=== PATIENT | female | born 1970 | race African-American/Black ===

== ENCOUNTER 2017-04-24 09:41 | Emergency (ER) | payer MEDICARE, OTHER ==
[~2017-04-24] VITALS: Ht 162.6 cm; Wt 61.0 kg
[2017-04-24 10:55] LABS: BASOPHILS % 0.1 % (0.0-2.0); EOSINOPHILS % 3.3 % (0.0-5.0); HEMATOCRIT. 31.3 % (36.0-48.0); HEMOGLOBIN. 10.6 g/dL (12.0-16.0); LYMPHOCYTES % 27.9 % (20.0-50.0); MEAN CORPUSCULAR HEMOGLOBIN 29.9 pg (28.0-32.0); MEAN CORPUSCULAR VOLUME 88.2 fL (81.0-99.0); MEAN PLATELET VOLUME 8.8 fl (7.4-10.4); MONOCYTES % 7.2 % (2.0-8.0); NEUTROPHILS % 61.5 % (40.0-76.0); PLATELET 200 x1000/uL (130-400); RED BLOOD CELL COUNT 3.55 mill/uL (4.2-5.4); RED CELL DISTRIBUTION WIDTH 17.2 % (11.6-14.6)
[2017-04-24 10:59] LABS: CLARITY URINE CLEAR (CLEAR); COLOR URINE YELLOW (YELLOW); KETONES URINE NEGATIVE (NEGATIVE); LEUKOCYTE ESTERASE URINE NEGATIVE (NEGATIVE); NITRITE URINE NEGATIVE (NEGATIVE); OCCULT BLOOD URINE TRACE (NEGATIVE); PH URINE 5.5 (4.5-8.0); PROTEIN URINE NEGATIVE (NEGATIVE); UROBILINOGEN URINE 0.2 E.U./dL (0.2-1.0)
[2017-04-24 11:03] LABS: INR 1.1; PROTHROMBIN TIME 11.9 sec (9.4-11.6)
[2017-04-24 11:06] LABS: AMMONIA < 10 uMol/L (<32); CHLORIDE 113 mEq/L (98-107); ETHANOL BLOOD < 10 mg/dL
[2017-04-24 11:20] LABS: HCG SCREEN NEGATIVE
[2017-04-24 11:35] LABS: *AMPHETAMINES SCREEN URINE NEGATIVE (NEGATIVE); *BARBITURATES SCREEN URINE NEGATIVE (NEGATIVE); *BENZODIAZEPINES SCREEN URINE NEGATIVE (NEGATIVE); *COCAINE SCREEN URINE NEGATIVE (NEGATIVE); METHADONE URINE SCREEN NEGATIVE (NEGATIVE); OPIATES URINE SCREEN NEGATIVE (NEGATIVE); PHENCYCLIDINE URINE SCREEN NEGATIVE (NEGATIVE)
[2017-04-24 11:43] LABS: CANNABINOID URINE SCREEN PRESUMTIVE POSITIVE (NEGATIVE)
[2017-04-24] MEDS ORDERED: ASPIRIN 325MG TABLET PO ONE (12:00)
[2017-04-24 12:55] VITALS: BP 183/90
== END 2017-04-24 14:55 | disposition left against medical advice (07) ==
LOC: ER 10:09 → EDBEDREQ 12:03 → EDBEDREQTM 12:03 → EDBEDREQ 12:34 → EDBEDREQTM 12:34 → ENRESERV 14:13 → CANRESERV 14:13 → ER 14:55 → CANBEDREQ 16:32
DX: I25.119 Atherosclerotic heart disease of native coronary artery with unspecified angina pectoris (principal); G45.9 Transient cerebral ischemic attack, unspecified; D72.819 Decreased white blood cell count, unspecified; D68.9 Coagulation defect, unspecified; I10 Essential (primary) hypertension; D64.9 Anemia, unspecified; R79.1 Abnormal coagulation profile; E05.90 Thyrotoxicosis, unspecified without thyrotoxic crisis or storm; J44.9 Chronic obstructive pulmonary disease, unspecified; F12.90 Cannabis use, unspecified, uncomplicated; Z91.19 Patient's noncompliance with other medical treatment and regimen; Z79.01 Long term (current) use of anticoagulants; Z95.2 Presence of prosthetic heart valve; Z98.61 Coronary angioplasty status
CPT/HCPCS: 36415; 70450; 71045; 80053; 80305; 81003; 82140; 84484; 84703; 85025; 85610; 93005; 99285; G0482

== ENCOUNTER 2019-01-08 10:09 | Emergency (ER) | payer MEDICARE, MEDICAID ==
[~2019-01-08] VITALS: Ht 167.6 cm; Wt 72.0 kg
[2019-01-08] MEDS ORDERED: HYDROCODONE/ACETAMINOPHEN 5/325MG TABLET PO SCH (12:45)
[2019-01-08 13:12] VITALS: BP 125/77
== END 2019-01-08 13:13 | disposition home or self-care (01) ==
LOC: ER 11:13
DX: S39.012A Strain of muscle, fascia and tendon of lower back, initial encounter (principal); I25.10 Atherosclerotic heart disease of native coronary artery without angina pectoris; I10 Essential (primary) hypertension; E05.90 Thyrotoxicosis, unspecified without thyrotoxic crisis or storm; F12.10 Cannabis abuse, uncomplicated; W19.XXXA Unspecified fall, initial encounter; Y93.89 Activity, other specified; Y92.89 Other specified places as the place of occurrence of the external cause; Y99.8 Other external cause status; Z95.4 Presence of other heart-valve replacement
CPT/HCPCS: 72100; 93005; 99283

== ENCOUNTER 2019-01-11 10:08 | Inpatient (IN) | payer MEDICARE, MEDICAID ==
[~2019-01-11] VITALS: Ht 163.8 cm; Wt 83.5 kg
[2019-01-11] MEDS ORDERED: KETOROLAC 30MG/ML VIAL IV STA (15:05)
[2019-01-11] MEDS ORDERED: SODIUM CHLORIDE 0.9% 1,000 ML IV ONE (15:05)
[2019-01-11] MEDS ORDERED: ONDANSETRON HCL 4MG/2ML INJ IV STA (15:05)
[2019-01-11] MEDS ORDERED: MORPHINE SULFATE 4 MG/ML CPJ (NOT FOR IM USE) IV STA (15:05)
[2019-01-11 15:42] LABS: BASOPHILS % 1.1 % (0.0-2.0); EOSINOPHILS % 1.4 % (0.0-5.0); HEMATOCRIT. 27.3 % (36.0-48.0); HEMOGLOBIN. 9.1 g/dL (12.0-16.0); INR 2.7; MEAN CORPUSCULAR HEMOGLOBIN 28.1 pg (28.0-32.0); MEAN CORPUSCULAR VOLUME 84.2 fL (81.0-99.0); MEAN PLATELET VOLUME 8.2 fl (7.4-10.4); MONOCYTES % 7.2 % (2.0-8.0); NEUTROPHILS % 71.3 % (40.0-76.0); PLATELET 203 x1000/uL (130-400); PROTHROMBIN TIME 26.8 sec (9.6-11.0); RED BLOOD CELL COUNT 3.24 mill/uL (4.2-5.4); RED CELL DISTRIBUTION WIDTH 14.8 % (11.6-14.6)
[2019-01-11 15:51] LABS: CHLORIDE 110 mEq/L (98-107)
[2019-01-11 17:03] LABS: CLARITY URINE CLEAR (CLEAR); COLOR URINE YELLOW (YELLOW); KETONES URINE NEGATIVE (NEGATIVE); LEUKOCYTE ESTERASE URINE NEGATIVE (NEGATIVE); NITRITE URINE NEGATIVE (NEGATIVE); OCCULT BLOOD URINE NEGATIVE (NEGATIVE); PH URINE 6.5 (4.5-8.0); PROTEIN URINE NEGATIVE (NEGATIVE); SPECIFIC GRAVITY URINE 1.012 (1.005-1.030)
[2019-01-11] MEDS ORDERED: DIPHENHYDRAMINE 50MG/ML VIAL IV PRN (18:45)
[2019-01-11] MEDS ORDERED: LORAZEPAM 0.5MG TABLET PO PRN (18:45)
[2019-01-11] MEDS ORDERED: GUAIFENESIN 200MG/10ML SUGAR FREE UDC PO PRN (18:45)
[2019-01-11] MEDS ORDERED: TEMAZEPAM 15MG CAPSULE PO PRN (18:45)
[2019-01-11] MEDS ORDERED: MAGNESIUM HYDROXIDE 400MG/5ML 30ML UDC PO PRN (18:45)
[2019-01-11] MEDS ORDERED: ACETAMINOPHEN 325MG TABLET PO PRN (18:45)
[2019-01-11] MEDS ORDERED: MAGNESIUM/ALUMINUM HYDROXIDE/SIMETHICONE 30ML UDC PO PRN (18:45)
[2019-01-11] MEDS ORDERED: HYDROMORPHONE HCL/PF 2MG/ML CPJ IV PRN (18:45)
[2019-01-11] MEDS ORDERED: KETOROLAC 30MG/ML VIAL IV PRN (19:00)
[2019-01-11] MEDS ORDERED: CLONIDINE 0.1MG TABLET PO PRN (19:00)
[2019-01-11] MEDS: HYDROCODONE/ACETAMINOPHEN 10/325MG TABLET PO PRN (23:39)
[2019-01-12 00:30] VITALS: BP 109/55
[2019-01-12] MEDS ORDERED: WARF6TAB48 MT (03:08)
[2019-01-12] MEDS ORDERED: LEVO112T2 MT (03:10)
[2019-01-12] MEDS: CEFAZOLIN 500 MG in DEXTROSE 5% WATER 50 ML IV SCH ×2 (03:27→10:10)
[2019-01-12] MEDS: SODIUM CHLORIDE 0.9% INJ 3ML FLUSH IVF SCH ×2 (06:55→13:05)
[2019-01-12] MEDS: LEVOTHYROXINE SODIUM 112MCG TABLET PO SCH (07:12)
[2019-01-12 07:49] LABS: INR 2.4; PROTHROMBIN TIME 23.5 sec (9.6-11.0)
[2019-01-12 08:00] VITALS: BP 119/58
[2019-01-12 08:17] LABS: BASOPHILS % 1.8 % (0.0-2.0); EOSINOPHILS % 3.1 % (0.0-5.0); HEMATOCRIT. 25.4 % (36.0-48.0); HEMOGLOBIN. 8.5 g/dL (12.0-16.0); LYMPHOCYTES % 28.7 % (20.0-50.0); MEAN CORPUSCULAR HEMOGLOBIN 28.6 pg (28.0-32.0); MEAN CORPUSCULAR VOLUME 85.1 fL (81.0-99.0); MEAN PLATELET VOLUME 8.5 fl (7.4-10.4); MONOCYTES % 12.2 % (2.0-8.0); NEUTROPHILS % 54.2 % (40.0-76.0); PLATELET 193 x1000/uL (130-400); RED BLOOD CELL COUNT 2.99 mill/uL (4.2-5.4); RED CELL DISTRIBUTION WIDTH 15.2 % (11.6-14.6)
[2019-01-12 08:31] LABS: CHLORIDE 112 mEq/L (98-107)
[2019-01-12 08:42] LABS: T4 FREE 1.29 ng/dL (0.76-1.46)
[2019-01-12] MEDS: FAMOTIDINE 20MG TABLET PO SCH ×2 (09:09→21:38)
[2019-01-12] MEDS: AMLODIPINE 2.5MG TABLET PO SCH (09:09)
[2019-01-12] MEDS: DOCUSATE SODIUM 100MG CAPSULE PO SCH ×2 (09:09→16:28)
[2019-01-12] MEDS: HYDROCODONE/ACETAMINOPHEN 10/325MG TABLET PO PRN ×2 (11:38→17:59)
[2019-01-12 11:44] VITALS: BP 114/48
[2019-01-12 12:00] VITALS: BP 108/57
[2019-01-12] MEDS ORDERED: IPRATROPIUM/ALBUTEROL 0.5-3(2.5)MG/3ML NEB HHN PRN (14:00)
[2019-01-12 16:00] VITALS: BP 137/83
[2019-01-12 20:00] VITALS: BP 122/56
[2019-01-12] MEDS: ONDANSETRON HCL 4MG/2ML INJ IV PRN (21:38)
[2019-01-13] VITALS: BP 126/58
[2019-01-13] MEDS: HYDROCODONE/ACETAMINOPHEN 10/325MG TABLET PO PRN ×2 (00:06→11:54)
[2019-01-13] MEDS: CEFAZOLIN 500 MG in DEXTROSE 5% WATER 50 ML IV SCH ×3 (01:37→18:06)
[2019-01-13 04:00] VITALS: BP 111/56
[2019-01-13 07:03] LABS: BASOPHILS % 1.4 % (0.0-2.0); HEMATOCRIT. 27.9 % (36.0-48.0); HEMOGLOBIN. 9.1 g/dL (12.0-16.0); LYMPHOCYTES % 32.1 % (20.0-50.0); MEAN CORPUSCULAR HEMOGLOBIN 27.8 pg (28.0-32.0); MEAN CORPUSCULAR VOLUME 84.8 fL (81.0-99.0); MEAN PLATELET VOLUME 8.2 fl (7.4-10.4); MONOCYTES % 10.8 % (2.0-8.0); NEUTROPHILS % 52.7 % (40.0-76.0); PLATELET 234 x1000/uL (130-400); RED BLOOD CELL COUNT 3.29 mill/uL (4.2-5.4); RED CELL DISTRIBUTION WIDTH 14.6 % (11.6-14.6)
[2019-01-13 07:05] LABS: INR 1.9; PROTHROMBIN TIME 19.1 sec (9.6-11.0)
[2019-01-13 08:00] VITALS: BP 126/84
[2019-01-13] MEDS: DOCUSATE SODIUM 100MG CAPSULE PO SCH ×2 (08:34→16:35)
[2019-01-13] MEDS: FAMOTIDINE 20MG TABLET PO SCH ×2 (08:34→20:34)
[2019-01-13] MEDS: LEVOTHYROXINE SODIUM 112MCG TABLET PO SCH (08:34)
[2019-01-13] MEDS: AMLODIPINE 2.5MG TABLET PO SCH (08:35)
[2019-01-13] MEDS ORDERED: SACU1TAB7 MT (09:00)
[2019-01-13] MEDS ORDERED: SACUBITRIL/VALSARTAN 49MG/51MG TABLET PO SCH (09:00)
[2019-01-13] MEDS ORDERED: ASPI-1393 MT (09:00)
[2019-01-13] MEDS ORDERED: METO25TA6 MT (09:00)
[2019-01-13] MEDS: VALSARTAN PO SCH ×2 (11:47→20:34)
[2019-01-13] MEDS: SACUBITRIL PO SCH ×2 (11:47→20:34)
[2019-01-13 12:00] VITALS: BP 126/67
[2019-01-13] MEDS: SODIUM CHLORIDE 0.9% INJ 3ML FLUSH IVF SCH (13:27)
[2019-01-13 16:00] VITALS: BP 121/77
[2019-01-13 20:00] VITALS: BP 117/75
[2019-01-13] MEDS: HYDROMORPHONE HCL/PF 2MG/ML CPJ IV PRN (20:35)
[2019-01-13] MEDS: ONDANSETRON HCL 4MG/2ML INJ IV PRN (21:54)
[2019-01-14] VITALS: BP 113/68
[2019-01-14] MEDS: CEFAZOLIN 500 MG in DEXTROSE 5% WATER 50 ML IV SCH ×3 (03:34→18:35)
[2019-01-14 04:00] VITALS: BP 114/65
[2019-01-14] MEDS: SODIUM CHLORIDE 0.9% INJ 3ML FLUSH IVF SCH ×3 (05:53→13:35)
[2019-01-14] MEDS: LEVOTHYROXINE SODIUM 112MCG TABLET PO SCH (06:22)
[2019-01-14 08:00] VITALS: BP 121/81
[2019-01-14 08:34] LABS: HEMATOCRIT 29.1 % (36.0-48.0); HEMOGLOBIN 9.7 g/dL (12.0-16.0); MEAN CORPUSCULAR HEMOGLOBIN 28.3 pg (28.0-32.0); MEAN CORPUSCULAR VOLUME 84.5 fL (81.0-99.0); PLATELET 258 x1000/uL (130-400); RED BLOOD CELL COUNT 3.44 mill/uL (4.2-5.4); RED CELL DISTRIBUTION WIDTH 14.3 % (11.6-14.6)
[2019-01-14 09:50] LABS: INR 1.7; PROTHROMBIN TIME 16.7 sec (9.6-11.0)
[2019-01-14] MEDS: FAMOTIDINE 20MG TABLET PO SCH ×2 (10:08→22:08)
[2019-01-14] MEDS: AMLODIPINE 2.5MG TABLET PO SCH (10:08)
[2019-01-14] MEDS: ASPIRIN 81MG EC TABLET PO SCH (10:09)
[2019-01-14] MEDS: SACUBITRIL PO SCH ×2 (10:10→22:09)
[2019-01-14] MEDS: DOCUSATE SODIUM 100MG CAPSULE PO SCH ×2 (10:10→16:12)
[2019-01-14] MEDS: VALSARTAN PO SCH ×2 (10:10→22:09)
[2019-01-14] MEDS: HYDROMORPHONE HCL/PF 2MG/ML CPJ IV PRN (11:32)
[2019-01-14 12:00] VITALS: BP 145/88
[2019-01-14 16:00] VITALS: BP 150/98
[2019-01-14] MEDS: HYDROCODONE/ACETAMINOPHEN 10/325MG TABLET PO PRN (18:34)
[2019-01-14 20:00] VITALS: BP 126/79
[2019-01-15] VITALS: BP 122/74
[2019-01-15 04:00] VITALS: BP 136/75
[2019-01-15] MEDS: SODIUM CHLORIDE 0.9% INJ 3ML FLUSH IVF SCH (04:18)
[2019-01-15] MEDS: CEFAZOLIN 500 MG in DEXTROSE 5% WATER 50 ML IV SCH (04:18)
[2019-01-15] MEDS: HYDROCODONE/ACETAMINOPHEN 10/325MG TABLET PO PRN ×2 (04:31→09:25)
[2019-01-15] MEDS: LEVOTHYROXINE SODIUM 112MCG TABLET PO SCH (06:19)
[2019-01-15 07:36] LABS: CHLORIDE 108 mEq/L (98-107)
[2019-01-15 08:00] VITALS: BP 139/102
[2019-01-15 08:08] LABS: BASOPHILS % 1.4 % (0.0-2.0); EOSINOPHILS % 2.6 % (0.0-5.0); LYMPHOCYTES % 30.3 % (20.0-50.0); MEAN CORPUSCULAR HEMOGLOBIN 28.3 pg (28.0-32.0); MEAN CORPUSCULAR VOLUME 85.2 fL (81.0-99.0); MONOCYTES % 7.9 % (2.0-8.0); NEUTROPHILS % 57.8 % (40.0-76.0); RED BLOOD CELL COUNT 3.88 mill/uL (4.2-5.4); RED CELL DISTRIBUTION WIDTH 14.6 % (11.6-14.6)
[2019-01-15] MEDS: FAMOTIDINE 20MG TABLET PO SCH (09:06)
[2019-01-15] MEDS: DOCUSATE SODIUM 100MG CAPSULE PO SCH (09:06)
[2019-01-15] MEDS: ASPIRIN 81MG EC TABLET PO SCH (09:06)
[2019-01-15] MEDS: AMLODIPINE 2.5MG TABLET PO SCH (09:12)
[2019-01-15] MEDS: VALSARTAN PO SCH (09:13)
[2019-01-15] MEDS: SACUBITRIL PO SCH (09:13)
[2019-01-15 12:00] VITALS: BP 168/96
[2019-01-15 15:14] VITALS: BP 168/96
[2019-01-15 20:07] LABS: MEAN PLATELET VOLUME 8.5 fl (7.4-10.4); PLATELET 262 x1000/uL (130-400)
== END 2019-01-15 15:29 | disposition home or self-care (01) | DRG 605 ==
LOC: ER 10:08 → 6EST 17:26 → EDBEDREQSVC 17:39 → EDBEDREQ 17:39 → EDBEDREQTM 22:12 → EDBEDREQSVC 22:12 → ENRESERV 23:24
PROVIDERS: ADMIT Internal Medicine; ATTEND Internal Medicine
DX: S30.0XXA Contusion of lower back and pelvis, initial encounter (principal); R79.1 Abnormal coagulation profile; T45.515A Adverse effect of anticoagulants, initial encounter; I25.10 Atherosclerotic heart disease of native coronary artery without angina pectoris; F12.90 Cannabis use, unspecified, uncomplicated; I11.9 Hypertensive heart disease without heart failure; I49.5 Sick sinus syndrome; W18.39XA Other fall on same level, initial encounter; E03.9 Hypothyroidism, unspecified; Y92.89 Other specified places as the place of occurrence of the external cause; Z95.2 Presence of prosthetic heart valve; Z79.01 Long term (current) use of anticoagulants; Z82.49 Family history of ischemic heart disease and other diseases of the circulatory system; Y93.89 Activity, other specified; Y99.8 Other external cause status; Z79.82 Long term (current) use of aspirin; Z79.899 Other long term (current) drug therapy
CPT/HCPCS: 36415; 80048; 81003; 84439; 84443; 85027; 93306; 96374; 97161; 99285; J0690; J1170; J1885; J2270; J2405; J7030; J7040; J7060

== ENCOUNTER 2022-04-21 13:10 | Inpatient (IN) | payer MEDICARE, OTHER ==
[~2022-04-21] VITALS: Ht 162.6 cm; Wt 74.4 kg
[~2022-04-21 13:10] MED LIST: ASPI-1497 MT; LEVO112T2 MT; METO25TA6 MT; SACU1TAB7 MT; WARF6TAB48 MT
[2022-04-21] MEDS ORDERED: TETRACAINE 0.5% OPHTH DROPS 4ML BOTHEYE ONE (14:00)
[2022-04-21] MEDS ORDERED: FLUORESCEIN SODIUM 1MG/STRIP BOTHEYE ONE (14:00)
[2022-04-21] MEDS ORDERED: HYDRALAZINE 20MG/ML VIAL IV NR (14:15)
[2022-04-21 14:18] LABS: BASOPHILS % 1.3 % (0.0-2.0); EOSINOPHILS % 1.1 % (0.0-5.0); HEMATOCRIT. 38.1 % (36.0-48.0); HEMOGLOBIN. 12.5 g/dL (12.0-16.0); LYMPHOCYTES % 32.1 % (20.0-50.0); MEAN CORPUSCULAR HEMOGLOBIN 28.8 pg (28.0-32.0); MEAN CORPUSCULAR VOLUME 87.4 fL (81.0-99.0); MEAN PLATELET VOLUME 7.9 fl (7.4-10.4); NEUTROPHILS % 59.5 % (40.0-76.0); PLATELET 233 x1000/uL (130-400); RED BLOOD CELL COUNT 4.36 mill/uL (4.2-5.4); RED CELL DISTRIBUTION WIDTH 16.5 % (11.6-14.6)
[2022-04-21 14:26] LABS: CHLORIDE 110 mEq/L (98-107)
[2022-04-21] MEDS: AMLODIPINE 5MG TABLET PO SCH ×2 (14:28→21:33)
[2022-04-21 14:29] LABS: INR 1.8; PARTIAL THROMBOPLASTIN TIME 45.6 sec (23.4-31.0); PROTHROMBIN TIME 18.9 sec (9.6-11.0)
[2022-04-21] MEDS ORDERED: IPRATROPIUM/ALBUTEROL 0.5-3(2.5)MG/3ML NEB HHN PRN (14:45)
[2022-04-21] MEDS ORDERED: ONDANSETRON HCL 4MG/2ML INJ IV PRN (14:45)
[2022-04-21] MEDS ORDERED: DIPHENHYDRAMINE 50MG/ML VIAL IV PRN (14:45)
[2022-04-21] MEDS: NICOTINE 7MG PATCH TD SCH (16:47)
[2022-04-21] MEDS: SACUBITRIL/VALSARTAN 49MG/51MG TABLET PO SCH (16:47)
[2022-04-21] MEDS: WARFARIN SODIUM 3MG TABLET PO SCH (17:33)
[2022-04-21 20:00] VITALS: BP_SYST 112; BP_SYST 122; BP_DIAS 69; BP_DIAS 79
[2022-04-21] MEDS ORDERED: METOPROLOL TARTRATE 50MG TABLET PO SCH (21:00)
[2022-04-21] MEDS: ACETAMINOPHEN 325MG TABLET PO PRN (22:04)
[2022-04-21] MEDS ORDERED: AMLO5TAB88 PO (22:48)
[2022-04-22] VITALS (7 sets, daily range): BP systolic 98–124; BP diastolic 50–79
[2022-04-22 05:36] LABS: BASOPHILS % 1.3 % (0.0-2.0); EOSINOPHILS % 1.4 % (0.0-5.0); HEMATOCRIT. 36.6 % (36.0-48.0); HEMOGLOBIN. 12.4 g/dL (12.0-16.0); LYMPHOCYTES % 33.8 % (20.0-50.0); MEAN CORPUSCULAR VOLUME 85.7 fL (81.0-99.0); NEUTROPHILS % 54.5 % (40.0-76.0); PLATELET 245 x1000/uL (130-400); RED BLOOD CELL COUNT 4.26 mill/uL (4.2-5.4); RED CELL DISTRIBUTION WIDTH 16.7 % (11.6-14.6)
[2022-04-22 05:41] LABS: INR 2.5; PROTHROMBIN TIME 25.4 sec (9.6-11.0)
[2022-04-22] MEDS: LEVOTHYROXINE SODIUM 112MCG TABLET PO SCH (08:13)
[2022-04-22] MEDS: AMLODIPINE 5MG TABLET PO SCH ×2 (09:00→20:58)
[2022-04-22] MEDS: METOPROLOL TARTRATE 25MG TABLET PO SCH ×2 (09:00→20:58)
[2022-04-22] MEDS: SACUBITRIL/VALSARTAN 49MG/51MG TABLET PO SCH ×3 (09:00→20:52)
[2022-04-22] MEDS: NICOTINE 7MG PATCH TD SCH (10:01)
[2022-04-22] MEDS: ACETAMINOPHEN 325MG TABLET PO PRN (10:36)
[2022-04-22] MEDS: WARFARIN SODIUM 3MG TABLET PO SCH (18:10)
[2022-04-22] MEDS ORDERED: ALBUTEROL (0.083%) 2.5MG/3ML NEB HHN PRN (19:45)
[2022-04-22] MEDS ORDERED: IPRATROPIUM BROMIDE (0.02%) 0.5MG/2.5ML NEB HHN PRN (19:45)
[2022-04-23] VITALS: BP 106/62
[2022-04-23 04:00] VITALS: BP 111/72
[2022-04-23 05:54] LABS: INR 3.1; PROTHROMBIN TIME 31.4 sec (9.6-11.0)
[2022-04-23 06:57] LABS: CHLORIDE 109 mEq/L (98-107)
[2022-04-23 07:32] LABS: BASOPHILS % 1.3 % (0.0-2.0); EOSINOPHILS % 1.8 % (0.0-5.0); HEMATOCRIT. 40.2 % (36.0-48.0); HEMOGLOBIN. 13.3 g/dL (12.0-16.0); LYMPHOCYTES % 33.2 % (20.0-50.0); MEAN CORPUSCULAR HEMOGLOBIN 28.2 pg (28.0-32.0); MEAN CORPUSCULAR VOLUME 85.3 fL (81.0-99.0); MEAN PLATELET VOLUME 8.4 fl (7.4-10.4); MONOCYTES % 5.5 % (2.0-8.0); NEUTROPHILS % 58.2 % (40.0-76.0); PLATELET 256 x1000/uL (130-400); RED BLOOD CELL COUNT 4.72 mill/uL (4.2-5.4); RED CELL DISTRIBUTION WIDTH 16.5 % (11.6-14.6)
[2022-04-23 08:00] VITALS: BP 121/88
[2022-04-23] MEDS ORDERED: AMLODIPINE 2.5MG TABLET PO SCH (09:00)
[2022-04-23] MEDS ORDERED: METOPROLOL TARTRATE 25MG TABLET PO SCH (09:00)
[2022-04-23] MEDS: SACUBITRIL/VALSARTAN 49MG/51MG TABLET PO SCH (09:28)
[2022-04-23] MEDS: LEVOTHYROXINE SODIUM 112MCG TABLET PO SCH (09:28)
[2022-04-23] MEDS ORDERED: POTASSIUM CHLORIDE 20MEQ TABLET SR PO NR (09:30)
[2022-04-23] MEDS ORDERED: METO25TA6 PO (09:38)
[2022-04-23] MEDS ORDERED: SACU1TAB MT (09:38)
[2022-04-23] MEDS ORDERED: NICO-786 TD (09:38)
[2022-04-23] MEDS: NICOTINE 7MG PATCH TD SCH (09:46)
[2022-04-23 11:43] VITALS: BP 121/88
[2022-04-23] MEDS ORDERED: WARFARIN SODIUM 4MG TABLET PO SCH (18:00)
== END 2022-04-23 12:05 | disposition home health service (06) | DRG 305 ==
LOC: ER 13:10 → 7WST 14:43 → EDBEDREQ 17:37 → ENRESERV 18:13 → EDBEDREQ 20:05 → EDBEDREQTM 20:05
PROVIDERS: ADMIT Family Medicine Adult Medicine; ATTEND Family Medicine Adult Medicine
DX: I16.0 Hypertensive urgency (principal); I42.9 Cardiomyopathy, unspecified; E03.9 Hypothyroidism, unspecified; E11.9 Type 2 diabetes mellitus without complications; I48.0 Paroxysmal atrial fibrillation; E78.5 Hyperlipidemia, unspecified; I10 Essential (primary) hypertension; R07.89 Other chest pain; I25.10 Atherosclerotic heart disease of native coronary artery without angina pectoris; F17.200 Nicotine dependence, unspecified, uncomplicated; Z79.01 Long term (current) use of anticoagulants; Z79.899 Other long term (current) drug therapy; Z95.3 Presence of xenogenic heart valve
CPT/HCPCS: 36415; 70486; 71045; 80048; 80053; 83735; 83880; 84439; 84443; 84480; 84484; 85025; 93005; 93306; 93970; 94640; 99291; J0360

== ENCOUNTER 2024-12-29 13:50 | Inpatient (IN) | payer MEDICARE, MEDICAID ==
[~2024-12-29] VITALS: Ht 162.6 cm; Wt 70.4 kg
[~2024-12-29 13:50] MED LIST changes: +AMLO5TAB88 PO; -ASPI-1497 MT; -METO25TA6 MT; +METO25TA6 PO; +NICO-786 TD; +SACU1TAB MT; -SACU1TAB7 MT
[2024-12-29 14:41] LABS: BG BASE EXCESS -3.3 mmol/L (-2.0-3.0); BG CARBOXYHEMOGLOBIN 0.7 % (0.5-1.5); BG DEOXYHEMOGLOBIN 7.4 % (0.0-5.0); BG FRACTION INSPIRED OXYGEN 21; BG HCO3 ACT 20.2 mmol/L (21.0-28.0); BG METHEMOGLOBIN 0.0 % (0.5-1.5); BG OXYGEN SATURATION 92.5 % (94.0-98.0); BG OXYHEMOGLOBIN 91.9 % (94.0-98.0); BG PCO2 30.9 mmHg (32.0-45.0); BG PH 7.434 (7.350-7.450); BG PO2 65.3 mmHg (83.0-108.0); BG SAMPLE SITE RIGHT RADIAL; BG TOTAL HEMOGLOBIN 9.5 g/dL (12.0-16.0); BG VENT MODE ROOM AIR
[2024-12-29] MEDS: SODIUM CHLORIDE 0.9% (SEPSIS BOLUS) IV ONE (15:07)
[2024-12-29] MEDS: ACETAMINOPHEN 500MG TABLET PO SCH (15:08)
[2024-12-29] MEDS: CEFTRIAXONE 1GM/50ML 50 ML IV ONE (15:08)
[2024-12-29 15:26] LABS: HEMATOCRIT. 24.8 % (36.0-48.0); HEMOGLOBIN. 8.2 g/dL (12.0-16.0); MEAN PLATELET VOLUME 8.2 fl (7.4-10.4); PLATELET 257 x1000/uL (130-400); RED BLOOD CELL COUNT 2.75 mill/uL (4.2-5.4); RED CELL DISTRIBUTION WIDTH 14.5 % (11.6-14.6)
[2024-12-29 15:27] LABS: CREATININE 1.3 mg/dL (0.6-1.0); UREA NITROGEN BLOOD 49 mg/dL (9-23)
[2024-12-29 15:29] LABS: ASPARTATE AMINOTRANSFERASE 21 IU/L (<34); BILIRUBIN DIRECT 0.2 mg/dL (<=3.0); BILIRUBIN TOTAL 0.4 mg/dL (0.1-1.0); PROTEIN TOTAL 5.9 g/dL (6.0-8.3)
[2024-12-29 15:34] LABS: TROPONIN I HIGH SENSITIVITY 126 ng/L (3.0-34)
[2024-12-29] MEDS: AZITHROMYCIN 500MG/250ML 250 ML IV ONE (15:35)
[2024-12-29 15:36] LABS: INR 1.0
[2024-12-29 15:49] LABS: HCG SCREEN NEGATIVE
[2024-12-29] MEDS: ASPIRIN 325MG EC TABLET PO NR (16:04)
[2024-12-29] MEDS: ENOXAPARIN 80MG/0.8ML SYR SUBCUT NR (16:04)
[2024-12-29 16:44] LABS: CLARITY URINE CLEAR (CLEAR); COLOR URINE YELLOW (YELLOW); GLUCOSE URINE NEGATIVE (NEGATIVE); KETONES URINE NEGATIVE (NEGATIVE); LEUKOCYTE ESTERASE URINE NEGATIVE (NEGATIVE); NITRITE URINE NEGATIVE (NEGATIVE); OCCULT BLOOD URINE NEGATIVE (NEGATIVE); PH URINE 5.5 (4.5-8.0); PROTEIN URINE TRACE (NEGATIVE); SPECIFIC GRAVITY URINE 1.020 (1.005-1.030); UROBILINOGEN URINE 0.2 E.U./dL (0.2-1.0)
[2024-12-29] MEDS ORDERED: MAGNESIUM/ALUMINUM HYDROXIDE/SIMETHICONE 30ML UDC PO PRN (17:00)
[2024-12-29] MEDS ORDERED: ONDANSETRON HCL 4MG/2ML INJ IV PRN (17:00)
[2024-12-29] MEDS ORDERED: MORPHINE SULFATE 2 MG/ML INJ (NOT FOR IM USE) IV PRN (17:00)
[2024-12-29] MEDS ORDERED: DEXTROSE 50% WATER 50ML SYRINGE IV PRN (17:00)
[2024-12-29] MEDS ORDERED: CLONIDINE 0.1MG TABLET PO PRN (17:00)
[2024-12-29] MEDS ORDERED: NALOXONE HCL 0.4MG/ML VIAL IV PRN (17:00)
[2024-12-29] MEDS ORDERED: PIPERACILLIN/TAZO 3.375G/50ML IV SCH (17:01)
[2024-12-29] MEDS ORDERED: WARFARIN SODIUM 10MG TABLET PO SCH (18:00)
[2024-12-29 18:33] LABS: BACTERIA URINE TRACE; RBC URINE 0-2 /hpf (0-2); SQUAMOUS EPITHELIAL CELL URINE FEW /lpf (RARE/1+); WBC URINE 0-2 /hpf (0-2)
[2024-12-29 19:15] VITALS: BP 140/90; PULSE 98; RESP 20; TEMP 36.9; TEMP 36.9184; O2SAT 96
[2024-12-29 20:00] VITALS: BP 152/87; PULSE 97; RESP 18; TEMP 36.3; O2SAT 98
[2024-12-29] MEDS: WARFARIN SODIUM 10MG TABLET PO SCH (20:54)
[2024-12-29] MEDS: INSULIN LISPRO 100 UNITS/ML SUBCUT SCH (20:54)
[2024-12-29] MEDS: BLOOD SUGAR DIAGNOSTIC STRIP TEST SCH (20:54)
[2024-12-29] MEDS: METOPROLOL TARTRATE 25MG TABLET PO SCH (20:55)
[2024-12-29] MEDS ORDERED: ZOLPIDEM TARTRATE 5MG TABLET PO PRN (21:00)
[2024-12-29 21:45] LABS: LYMPHOCYTES % MANUAL 14.0 % (20.0-60.0); MONOCYTES % MANUAL 6.0 % (2.0-8.0); NEUTROPHILS % MANUAL 80.0 % (45.0-75.0); PLATELET ESTIMATE NORMAL
[2024-12-29] MEDS: PIPERACILLIN/TAZO 3.375G/50ML 50 ML IV SCH (21:50)
[2024-12-30] VITALS: BP 119/75; PULSE 97; RESP 20; TEMP 36; O2SAT 100
[2024-12-30 02:50] LABS: TROPONIN I HIGH SENSITIVITY 130 ng/L (3.0-34)
[2024-12-30 04:00] VITALS: BP 100/56; PULSE 102; RESP 20; TEMP 36.1; O2SAT 100
[2024-12-30] MEDS: ENOXAPARIN 80MG/0.8ML SYR SUBCUT SCH (06:20)
[2024-12-30] MEDS: LEVOTHYROXINE SODIUM 112MCG TABLET PO SCH (06:20)
[2024-12-30 07:23] LABS: BASOPHILS % 0.1 % (0.0-2.0); EOSINOPHILS % 0.1 % (0.0-5.0); HEMATOCRIT. 22.9 % (36.0-48.0); HEMOGLOBIN. 7.5 g/dL (12.0-16.0); INR 1.0; LYMPHOCYTES % 21.5 % (20.0-50.0); MEAN PLATELET VOLUME 8.1 fl (7.4-10.4); MONOCYTES % 8.3 % (2.0-8.0); NEUTROPHILS % 70.0 % (40.0-76.0); PLATELET 239 x1000/uL (130-400); RED BLOOD CELL COUNT 2.55 mill/uL (4.2-5.4); RED CELL DISTRIBUTION WIDTH 14.9 % (11.6-14.6)
[2024-12-30 07:55] LABS: CREATININE 1.2 mg/dL (0.6-1.0); UREA NITROGEN BLOOD 43.0 mg/dL (9-23)
[2024-12-30 08:00] VITALS: BP 125/76; PULSE 100; RESP 18; TEMP 36.7; O2SAT 98
[2024-12-30 08:05] LABS: TROPONIN I HIGH SENSITIVITY 145 ng/L (3.0-34)
[2024-12-30 08:19] LABS: *AMPHETAMINES SCREEN URINE NEGATIVE (NEGATIVE); *BARBITURATES SCREEN URINE NEGATIVE (NEGATIVE); *BENZODIAZEPINES SCREEN URINE NEGATIVE (NEGATIVE); *COCAINE SCREEN URINE NEGATIVE (NEGATIVE); METHADONE URINE SCREEN NEGATIVE (NEGATIVE)
[2024-12-30 08:20] LABS: CANNABINOID URINE SCREEN PRESUMPTIVE POSITIVE (NEGATIVE); ECSTASY MDMA SCREEN URINE NEGATIVE (NEGATIVE); OPIATES URINE SCREEN NEGATIVE (NEGATIVE); PHENCYCLIDINE URINE SCREEN NEGATIVE (NEGATIVE)
[2024-12-30] MEDS: PANTOPRAZOLE SODIUM 40 MG/VIAL IV SCH (08:43)
[2024-12-30] MEDS: AMLODIPINE 5MG TABLET PO SCH (08:43)
[2024-12-30] MEDS: NICOTINE 7MG PATCH TD SCH (08:43)
[2024-12-30 12:00] VITALS: BP 113/77; PULSE 100; RESP 18; TEMP 36.8; O2SAT 96
[2024-12-30] MEDS: ACETAMINOPHEN 325MG TABLET PO PRN (12:01)
[2024-12-30] MEDS ORDERED: BUDESONIDE 0.5MG/2ML NEB HHN SCH (15:00)
[2024-12-30 16:00] VITALS: BP 126/81; PULSE 107; RESP 18; TEMP 36.7; O2SAT 97
[2024-12-30] MEDS: WARFARIN SODIUM 2MG TABLET PO SCH (19:21)
[2024-12-30 20:00] VITALS: BP 113/76; PULSE 109; RESP 20; TEMP 36.3; O2SAT 99
[2024-12-30] MEDS ORDERED: MORPHINE SULFATE 4 MG/ML INJ (FOR IV/IM USE) IV PRN (21:45)
[2024-12-30] MEDS: SACUBITRIL/VALSARTAN 24MG/26MG TABLET PO SCH (21:58)
[2024-12-31] VITALS (11 sets, daily range): BP systolic 91–115; BP diastolic 58–76; PULSE 101–115; RESP 16–20; TEMP 36–36.7; O2SAT 94–98
[2024-12-31] MEDS: BUDESONIDE 0.5MG/2ML NEB HHN SCH (02:17)
[2024-12-31] MEDS: IPRATROPIUM/ALBUTEROL 0.5-3(2.5)MG/3ML NEB HHN SCH (02:17)
[2024-12-31] MEDS: HYDROCODONE/ACETAMINOPHEN 5/325MG TABLET PO PRN (04:43)
[2024-12-31 06:16] LABS: CREATININE 1.2 mg/dL (0.6-1.0); UREA NITROGEN BLOOD 34 mg/dL (9-23)
[2024-12-31 06:58] LABS: TROPONIN I HIGH SENSITIVITY 206 ng/L (3.0-34)
[2024-12-31 07:08] LABS: BASOPHILS % 0.1 % (0.0-2.0); EOSINOPHILS % 1.2 % (0.0-5.0); HEMATOCRIT. 24.9 % (36.0-48.0); HEMOGLOBIN. 8.3 g/dL (12.0-16.0); LYMPHOCYTES % 24.4 % (20.0-50.0); MEAN PLATELET VOLUME 8.2 fl (7.4-10.4); MONOCYTES % 6.2 % (2.0-8.0); NEUTROPHILS % 68.1 % (40.0-76.0); PLATELET 238 x1000/uL (130-400); RED BLOOD CELL COUNT 2.78 mill/uL (4.2-5.4); RED CELL DISTRIBUTION WIDTH 14.8 % (11.6-14.6)
[2024-12-31] MEDS: METOPROLOL TARTRATE 25MG TABLET PO SCH (20:41)
[2024-12-31] MEDS: WARFARIN SODIUM 3MG TABLET PO SCH (21:12)
[2024-12-31 22:31] LABS: INR 1.3
[2025-01-01] VITALS (8 sets, daily range): BP systolic 89–107; BP diastolic 50–78; PULSE 11–113; RESP 18–20; TEMP 36.5–36.6; O2SAT 93–100
[2025-01-01 08:23] LABS: BASOPHILS % 0.4 % (0.0-2.0); EOSINOPHILS % 1.9 % (0.0-5.0); HEMATOCRIT. 28.8 % (36.0-48.0); HEMOGLOBIN. 9.5 g/dL (12.0-16.0); LYMPHOCYTES % 25.2 % (20.0-50.0); MEAN PLATELET VOLUME 8.1 fl (7.4-10.4); MONOCYTES % 6.6 % (2.0-8.0); NEUTROPHILS % 65.9 % (40.0-76.0); PLATELET 273 x1000/uL (130-400); RED BLOOD CELL COUNT 3.16 mill/uL (4.2-5.4); RED CELL DISTRIBUTION WIDTH 15.0 % (11.6-14.6)
[2025-01-01 08:33] LABS: CREATININE 1.1 mg/dL (0.6-1.0); UREA NITROGEN BLOOD 22 mg/dL (9-23)
[2025-01-01 08:34] LABS: INR 1.3
[2025-01-01] MEDS ORDERED: WARF6TAB48 MT (10:34)
[2025-01-01] MEDS ORDERED: WARFARIN SODIUM 3MG TABLET PO SCH (18:00)
[2025-03-27] MEDS ORDERED: LIP40 PO (14:28)
[2025-03-27] MEDS ORDERED: SACU1TAB PO (14:28)
== END 2025-01-01 16:35 | disposition home or self-care (01) | DRG 280 ==
LOC: ER 13:50 → EDBEDREQ 16:50 → EDBEDREQTM 16:50 → ENRESERV 17:07 → 8WST 19:36
PROVIDERS: ADMIT Internal Medicine; ATTEND Internal Medicine
DX: I11.0 Hypertensive heart disease with heart failure (principal); I21.4 Non-ST elevation (NSTEMI) myocardial infarction; I50.23 Acute on chronic systolic (congestive) heart failure; J96.00 Acute respiratory failure, unspecified whether with hypoxia or hypercapnia; G72.81 Critical illness myopathy; I47.19 Other supraventricular tachycardia; E11.9 Type 2 diabetes mellitus without complications; D64.9 Anemia, unspecified; N17.9 Acute kidney failure, unspecified; J02.9 Acute pharyngitis, unspecified; Z79.01 Long term (current) use of anticoagulants; E03.9 Hypothyroidism, unspecified; J44.9 Chronic obstructive pulmonary disease, unspecified; F12.10 Cannabis abuse, uncomplicated; Z95.3 Presence of xenogenic heart valve; R79.1 Abnormal coagulation profile; R79.89 Other specified abnormal findings of blood chemistry; E78.5 Hyperlipidemia, unspecified; I25.10 Atherosclerotic heart disease of native coronary artery without angina pectoris; I48.0 Paroxysmal atrial fibrillation; F17.210 Nicotine dependence, cigarettes, uncomplicated; E87.5 Hyperkalemia; Z95.1 Presence of aortocoronary bypass graft; Z79.899 Other long term (current) drug therapy
CPT/HCPCS: 36415; 36600; 71045; 80048; 80076; 80305; 80320; 81003; 82375; 82805; 82962; 83605; 83735; 83880; 84145; 84443; 84484; 84703; 85025; 93005; 93970; 94070; 94640; 94664; 96365; 96368; 96372; 97162; 99291; J0456; J0696; J1650; J1815; J2470; J2543; J7030; J7626; G0480